=== PATIENT | male | born 1985 | race Caucasian/White ===

== ENCOUNTER 2017-02-05 01:05 | Emergency (ER) | payer SELFPAY ==
[~2017-02-05] VITALS: Ht 167.6 cm; Wt 61.2 kg
--- NOTE | ~2017-02-05 | CR72 ---
[facility] A Service of [facility] & [facility] RADIOLOGY TEXT RESULTS PATIENT: DANNA CHAN LOCATION: SED : 85 UNIT #: [id number] AGE: [address]: Judah Sommer MD SEX: M ORDER DR: [id number] [place] [id number] E MR#: [id number] Acc #: [id number] NAME: DANNA CHAN : 1985 SEX: M STUDY DATE/TIME: 02/05/2017 2:51 UNIT: SED ROOM: STUDY DESCRIPTION: CR Chest Single View Portable Attending Physician: Judah Sommer M.D. Ordering Physician: Judah Sommer M.D. Primary Care Physician: Shayy Sauceda M.D. MEDICAL IMAGING REPORT This report is preliminary unless electronic signature is present. EXAM Portable chest INDICATION Cough and shortness of air today. PROCEDURE Frontal view chest. COMPARISON None. FINDINGS Heart size normal. Lungs are clear. No pleural fluid or visible pneumothorax. IMPRESSION No active process. Dictated by... Frantz Almanzar M.D. THIS IS AN ELECTRONICALLY VERIFIED REPORT Frantz Almanzar M.D. at 02/09/2017 8:30 AM NEO/ashely TD: 02/05/2017 07:58 JOB #: [id number] MEDICAL IMAGING REPORT Page 1 of 1
[~2017-02-05 01:05] MED LIST: ALOCRIL; ILOTYCIN OPTH
[2017-02-05] MEDS ORDERED: NO MEDICATIONS (01:53)
[2017-02-05 02:56] LABS: BASOPHIL% 0.5 % (0-2.5); EOSINOPHIL# 0.2 X10e3 (0-0.7); EOSINOPHIL% 2.2 % (0.0-7.0); HEMATOCRIT 40.8 % (38.0-50.0); HEMOGLOBIN 14.1 gm/dL (13.0-16.0); LYMPHOCYTE# 1.5 X10e3 (1.0-3.5); LYMPHOCYTE% 22.2 % (17.0-45.0); MEAN CELL VOLUME 90.6 FL (83-96); MEAN CORPUSCULAR HEMOGLOBIN 31.3 PG (28-34); MEAN CORPUSCULAR HGB CONC 34.5 g/dL (30-36); MEAN PLATELET VOLUME 9.2 FL (6.5-11.5); MONOCYTE# 0.5 X10e3 (0-1.0); MONOCYTE% 6.8 % (3.0-12.0); NEUTROPHIL# 4.7 X10e3 (1.5-7.1); NEUTROPHIL% 68.3 % (40-75); PLATELET COUNT 180 X10e3 (140-420); WHITE BLOOD COUNT 6.9 X10e3 (4.0-10.5)
[2017-02-05 02:59] LABS: DIFF IND NO
[2017-02-05 03:05] LABS: ALBUMIN SERUM 5.1 g/dL (3.5-5.0); BILIRUBIN,TOTAL 0.4 mg/dL (0.2-2.0); CALCIUM SERUM 9.3 mg/dL (8.4-10.2); GLOM FILT RATE Estimated 99.9 mL/min (>60); POTASSIUM 4.1 mmol/L (3.5-5.1); PROTEIN TOTAL SERUM 7.4 g/dL (6.0-8.3)
[2017-02-05 04:07] LABS: URINE SOURCE CLEAN CATCH
[2017-02-05 04:09] LABS: URINE APPEARANCE CLEAR; URINE BILIRUBIN NEG (NEG); URINE BLOOD NEG (NEG); URINE COLOR YELLOW; URINE GLUCOSE NEG (NORM); URINE KETONE NEG (NEG); URINE LEUKOCYTE ESTERASE NEG (NEG); URINE NITRATE NEG (NEG); URINE PROTEIN NEG (NEG); URINE UROBILINOGEN 0.2 MG/DL (NORM)
[2017-02-05 04:10] LABS: MICRO INDICATED? NO
== END 2017-02-05 04:49 | disposition home or self-care (01) ==
LOC: SED 01:05
DX: E86.0 Dehydration (principal); F17.200 Nicotine dependence, unspecified, uncomplicated
CPT/HCPCS: 36415; 71010; 80053; 81003; 85025; 94640; 96360; 96361; 99284